=== PATIENT | male | born 1975 | race Caucasian/White ===

== ENCOUNTER 2016-10-28 13:00 | Emergency (ER) | payer OTHER ==
[~2016-10-28] VITALS: Ht 185.4 cm; Wt 106.8 kg
[~2016-10-28 13:00] MED LIST: ASPI-628 PO; ATOR80TA77 PO; HYDR25TA4 PO; METO-272 PO; ZYL100 PO
[2016-10-28 13:04] VITALS: BP 153/114; PULSE 90; RESP 18; O2SAT 98
[2016-10-28] MEDS ORDERED: 0.9% Sodium Chloride 1,000 ML IV ONE (13:21)
[2016-10-28] MEDS ORDERED: Ondansetron 2 mg/mL 2 mL Inj IVPUSH PRN (13:25)
--- NOTE | 2016-10-28 14:24 | DRSVH ---
PROCEDURE: CT KUB ([id number]) INDICATIONS: abd pain hematuria TECHNIQUE: Noncontrast 5 mm thick sections acquired from the diaphragms to the symphysis. 5 mm thick coronal an d sagittal reformats were then performed. For radiation dose reduction, the following was used: aut omated exposure control, adjustment of mA and/or kV according to patient size. COMPARISON: None. FINDINGS: Image quality: Excellent. Lung bases: Lung bases are clear. Heart size is normal. Urinary system: Both kidneys are normal in size. No kidney stones. No hydronephrosis or perinephri c fat stranding. Both ureters appear non-dilated throughout their expected courses. Bladder wall th ickness is normal; no calcified bladder stones. Other solid organs: Liver and spleen are normal in size. Diffuse fatty infiltration of the liver is noted. Gallbladder is within normal limits. Pancreas is normal in contours. No adrenal nodules. Peritoneum and bowel: Unenhanced bowel loops demonstrate normal wall thickness and caliber. Fat is n oted in the right colon wall in the terminal ileum. No free fluid or air. The appendix is not visuali zed, however, no inflammatory changes noted adjacent to the cecum. Nodes and vessels: No retroperitoneal or mesenteric adenopathy by size criteria. Aorta and inferior vena cava are normal in caliber. Abdominal wall: No ventral hernias. Pelvis: No free pelvic fluid. No inguinal hernias or adenopathy. Bones: No suspicious bony lesions. No vertebral body compression fractures. IMPRESSION: 1. No renal stone or hydronephrosis. 2. Hepatic steatosis. 3. No free fluid or air. 4. No dilated loops of bowel. 5. No inflammatory changes. 6. Intramural fat involving the right colon and terminal ileum. Finding is nonspecific and may repres ent a normal finding, however finding can also be associated with inflammatory bowel disease. Please correlate with clinical data. Dictated by: Rosibel Callejas MD, PhD on 10/28/2016 at 14:09 Approved by: Rosibel Callejas MD, PhD on 10/28/2016 at 14:23
--- NOTE | 2016-10-28 14:33 | ED.REPORT ---
HPI-Abd Pain M Under 40 Date of Service Oct 28, 2016 ED Provider: Artur Ochoa MD Patient is a 41-year-old male who reports to the ED complaining of RLQ abdominal pain radiating to the groin, onset 4 days ago. Pt c/o associated hematuria and vomiting. Patient denies nausea, fever, urinary urgency, frequency , dysuria, back pain, diarrhea, and loss of appetite. Patient has no history of stones. Nursing Notes Stated Complaint: STOMACH PAIN Chief Complaint: Male Abdominal Pain Nursing Notes Reviewed: Yes Allergies: Coded Allergies: No Known Allergies (Unverified , 10/28/16) Scheduled Allopurinol (Allopurinol) 100 Mg Tablet 300 MG PO DAILY Aspirin (Aspir 81) 81 Mg Tablet.dr 81 MG PO DAILY Atorvastatin Calcium (Atorvastatin Calcium) 80 Mg Tablet 80 MG PO DAILY Ciprofloxacin (Ciprofloxacin) 500 Mg Tablet 500 MG PO BID Hydrochlorothiazide (Hydrochlorothiazide) 25 Mg Tablet 25 MG PO DAILY Metoprolol Succinate ER (Metoprolol Succinate ER) 50 Mg Tab.er.24h 100 MG PO DAILY General Time Seen by MD: 13:20 Chief Complaint Abdominal pain (RLQ) Hx Obtained From: Patient Arrived By: Walk-in Sudden in Onset?: Yes Onset Occurred: 4 days ago Symptom Duration: Since onset Location: : RLQ Radiation: : Pelvis Severity: Current: Moderate Recent Healthcare: No recent doctor visit, No recent hospitalization Similar Sx Previous: No Past Medical History Past Medical History Hernia GERD Hypertension Past Surgical History Hernia repair x2 Mastiodectomy Appendectomy Knee surgery x2 Herniated disc repair Tonsillectomy Family History Mother: [place] at 61, DM and HTN Smoking History Never Smoker Social History Alcohol Use: "Social" Drug Use: Denies drug use Other Social History: Ambulatory Status Independent Review of Systems Constitutional: Denies: Fever GI: Reports: Abdominal pain, Vomiting, Denies: Diarrhea, Nausea Male: Reports Hematuria, Denies Dysuria, Denies Flank pain, Denies Urinary frequency, Denies Urinary urgency Musculoskeletal: Denies: Back pain Complete sys rev & neg: except as marked. Physical Exam Initial Vital Signs Vital Signs (First) Date Time Temp Pulse Resp B/P Pulse Ox O2 Delivery O2 Flow Rate FiO2 10/28/16 13:04 36.4 90 18 153/114 98 Room Air Initial VS: Reviewed Head / Eyes: Atraumatic, Normocephalic, PERRL ENT: Mucous membranes moist, Conjunctiva normal, No scleral icterus Neck: Supple, Non-tender, Full range of motion Skin: Warm, Dry, No cyanosis Neurologic: Alert, Oriented, Nonfocal Psychiatric: Mood/affect normal, Behavior normal, Normal thought content General/Constitutional: Awake, Alert Respiratory / Chest: Atraumatic, Breath sounds NL, Breath sounds = bilat, No respiratory distress, No rales, No rhonchi, No wheezing Cardiovascular: Heart rate NL, Regular rhythm, Heart sounds NL, No gallop Abdomen: Atraumatic, Soft, Non-tender, No guarding, No rebound Back: Atraumatic, Inspection NL, Full range of motion, Painless range of motion , Non-tender Interpretation & Diagnostics Lab Results Interpretation Test 10/28/16 14:20 10/28/16 15:11 Urine Color Dark yellow (YELLOW) Urine Appearance Clear (CLEAR,HAZY) Urine pH 5.5 (5.0-8.0) Urine Specific [place] 1.025 (1.003-1.035) Urine Protein Negativemg/dL (NEG,TRACE) Urine Glucose (UA) Negativemg/dL (NEGATIVE) Urine Ketones 40mg/dL (NEGATIVE) Urine Occult Blood Trace (NEGATIVE) Urine Nitrite Negative (NEGATIVE) Urine Bilirubin Negative (NEGATIVE) Urine Urobilinogen Normalmg/dL (NORMAL) Urine Leukocyte Esterase Negative (NEGATIVE) Urine RBC 0-2/hpf (0-2) Urine WBC 0-5/hpf (0-5) Urine Epithelial Cells Occasional/hpf (NONE-MOD) Urine Crystals None seen (NONE SEEN) Urine Bacteria None/hpf (NONE-FEW) Urine Hyaline Casts None/lpf (NONE) Urine Granular Casts None seen (NONE SEEN) Urine Waxy Casts None seen (NONE SEEN) Urine Red Blood Cell Casts None seen (NONE SEEN) Urine White Blood Cell Casts None seen (NONE SEEN) Urine Mucus Present (None Seen) Urine Trichomonas None seen (NONE SEEN) Urine Yeast None (NONE SEEN) Urinalysis Comment None Urine Culture Reflexed Not indicated CT Abd / Pelvis Interpretation IMPRESSION: 1. No renal stone or hydronephrosis. 2. Hepatic steatosis. 3. No free fluid or air. 4. No dilated loops of bowel. 5. No inflammatory changes. 6. Intramural fat involving the right colon and terminal ileum. Finding is nonspecific and may represent a normal finding, however finding can also be associated with inflammatory bowel disease. Please correlate with clinical data. Dictated by: Rosibel Callejas MD, PhD on 10/28/2016 at 14:09 Approved by: Rosibel Callejas MD, PhD on 10/28/2016 at 14:23 Study type: Abdominal CT no contrast Interpretation / Wet Read by: Interpret - Radiologist Re-Eval/Medical Decision Med Decision/Clinical Course 41-year-old male with right lower quadrant pain and hematuria times several days. Patient was seen in urgent care and had normal testicular ultrasound today. Urine there showed leukocytes with negative nitrites and positive blood. White blood cell count was 11,000. Other basic labs unremarkable. CT abdomen and pelvis here shows no evidence of kidney stone. There is right colon with intramural fat and terminal ileum. Patient will be treated for a UTI with return precautions. He is advised to follow-up with primary doctor next week to follow up on his hematuria. Return precautions given. Re-Evaluation/Progress : Time of Eval: 15:06 Patient Status: Condition improved Re-Evaluation/Progress Note: Pt rechecked. Informed pt of diagnosis of urinary tract infection and plan for treatment. Pt understands and agrees with plan. F/U and RTER warnings given. All questions addressed. Counseled Regarding: Diagnosis, Lab results, Need for follow-up, When/why to return to ED Patient Discharge & Departure Primary Impression: Hematuria Additional Impression: Urinary tract infection Urinary tract infection type: site unspecified Hematuria presence: with hematuria Qualified Code: N39.0 - Urinary tract infection, site not specified Disposition: Home Discharge Condition All VS Reviewed: Yes Condition: Stable Additional Instructions: Thank you for coming to the Emergency Room today. After review of your labs, your diagnosis is hematuria and urinary tract infection. Take antibiotics twice a day for seven days. Please follow up with your primary care physician next week. Return to the Emergency Room if you experience any new or worsening symptoms including vomiting, nausea, dysuria, back pain, diarrhea, and loss of appetite. We hope you feel better soon! Referrals: Balwinder Johnston MD (PCP) Scribe Attestation Portion of this note were transcribed by Tanvir Aguilar. I, Dr. Ochoa, personally performed the history, physical exam, and medical decision-making: I reviewed and confirmed the accuracy for the information in the transcribed note. Signed by: mk Ledezma, 10/28/16 [id number] copies to: Balwinder Johnston MD, Ben M MD Oct 28, 2016 14:24 TANVIR AGUILAR Oct 28, 2016 14:33
[2016-10-28 15:01] LABS: APPEARANCE,URINE CLEAR (CLEAR,HAZY); COLOR,URINE DARK YELLOW (YELLOW); OCCULT BLOOD,URINE TRACE (NEGATIVE); PH,URINE 5.5 (5.0-8.0)
[2016-10-28 15:04] LABS: UROBILINOGEN,URINE NORMAL (NORMAL)
[2016-10-28] MEDS ORDERED: CIPR-198 PO (15:13)
[2016-10-28 15:57] VITALS: BP 162/68; PULSE 79; RESP 19; O2SAT 99
== END 2016-10-28 15:58 | disposition home or self-care (01) ==
LOC: SED 13:00
DX: N39.0 Urinary tract infection, site not specified (principal); R31.9 Hematuria, unspecified; I10 Essential (primary) hypertension; K21.9 Gastro-esophageal reflux disease without esophagitis; Z79.82 Long term (current) use of aspirin
CPT/HCPCS: 74176; 81000; 96361; 96374; 96375; 99285; J2405; J7030

== ENCOUNTER 2016-11-01 17:55 | Emergency (ER) | payer OTHER ==
[~2016-11-01] VITALS: Ht 185.4 cm; Wt 106.8 kg
[~2016-11-01 17:55] MED LIST changes: +CIPR-198 PO
[2016-11-01 18:10] VITALS: BP 200/120; PULSE 61; RESP 15; O2SAT 98
--- NOTE | 2016-11-01 19:19 | ED.REPORT ---
HPI-Extremity Problem Lower Date of Service Nov 01, 2016 ED Provider: Dr. Tong Michaud D.O. A 41 year old male with a history of hypertension, hernia, GERD, and gout presents to the ED from his PCP's office with right foot pain onset two days upon awakening at 0200. The pain is exacerbated with range of motion. The patient also reports that his foot appeared purple today, but this has since resolved. He denies fever or injury/trauma to the area. He has had similar symptoms in the past, although less severe, secondary to gout. The patient was in the ED four days ago with a UTI and kidney stones, and was subsequently placed on Cipro. Nursing Notes Stated Complaint: RIGHT FOOT AND LEG PAIN, FOOT PURPLE Chief Complaint: Extremity Trauma Nursing Notes Reviewed: Yes Allergies: Coded Allergies: No Known Allergies (Unverified , 11/01/16) Scheduled Allopurinol (Allopurinol) 100 Mg Tablet 300 MG PO DAILY Aspirin (Aspir 81) 81 Mg Tablet.dr 81 MG PO DAILY Atorvastatin Calcium (Atorvastatin Calcium) 80 Mg Tablet 80 MG PO DAILY Ciprofloxacin (Ciprofloxacin) 500 Mg Tablet 500 MG PO BID Hydrochlorothiazide (Hydrochlorothiazide) 25 Mg Tablet 25 MG PO DAILY Metoprolol Succinate ER (Metoprolol Succinate ER) 50 Mg Tab.er.24h 100 MG PO DAILY General Time Seen by MD: 19:19 Chief Complaint Other (Right Foot Pain) Hx Obtained From: Patient Arrived By: Walk-in Onset Occurred: 2 days ago Symptom Duration: Since onset Caused by: Mechanism unknown Location: : Foot right Quality: Painful Severity: Current: Moderate Severity: Maximum: Moderate Associated with: Denies: Fever Exacerbated by: Range of motion Pertinent Negative: Relieved by nothing Immunizations: Tetanus not up to date Recent Healthcare: Recent doctor visit Similar Sx Previous: Yes Past Medical History Past Medical History Hernia GERD Hypertension Gout Past Surgical History Hernia repair x2 Mastiodectomy Appendectomy Knee surgery x2 Herniated disc repair Tonsillectomy Left heart catheterization Family History Mother: [place] at 61, DM and HTN Smoking History Never Smoker Social History Alcohol Use: "Social" Drug Use: Denies drug use Other Social History: Ambulatory Status Independent Review of Systems Review of Systems Note: + Right foot color change to purple Constitutional: Denies: Fever Musculoskeletal: Reports: Extremity pain (Right Foot) Complete sys rev & neg: except as marked. Respiratory: Denies: Non-productive cough, Shortness of breath GI: Denies: Vomiting Physical Exam Physical Exam Notes: Initial Vital Signs Vital Signs (First) Date Time Temp Pulse Resp B/P Pulse Ox O2 Delivery O2 Flow Rate FiO2 11/01/16 18:10 36.2 61 15 200/120 98 Room Air Initial VS: Reviewed Head / Eyes: Atraumatic, Normocephalic ENT: Conjunctiva normal, No scleral icterus Neck: Supple, Full range of motion Respiratory: Breath sounds normal, Clear to auscultation, No respiratory distress Cardiovascular: Regular rate & rhythm, Heart sounds normal Skin: Warm, Dry Neurologic: Alert, Oriented, Nonfocal Psychiatric: Mood/affect normal, Behavior normal, Normal thought content Ankle / Foot: Neurologic intact, Vascular intact (Bounding DP and PT pulses) Extreme pain with range of motion of right foot Petechia on dorsal aspect of right foot Lymphangitic streaking, right foot General/Constitutional: Awake, Alert Interpretation & Diagnostics RIGHT LEG VEINOUS DUPLEX US: IMPRESSION: No DVT in the right lower extremity. Dictated by: Jasmin Spears M.D. on 11/01/2016 at 21:41 Lab Results Interpretation Result Diagram: 11/01/16201911/01/16 2020 Test 11/01/16 20:20 White Blood Count 7.9th/mm3 (3.8-10.1) Red Blood Count 4.93mil/mm3 (4.40-5.80) Hemoglobin 16.3g/dL (13.8-17.2) Hematocrit 46.4% (41.0-50.0) Mean Corpuscular Volume 94.1fL (81-100) Mean Corpuscular Hemoglobin 33.1pg (27.0-35.0) Mean Corpuscular Hemoglobin Concent 35.1% (32.0-37.0) Red Cell Distribution Width 11.7% (12.3-15.4) Platelet Count 250bil/L (150-400) Neutrophils (%) (Auto) 71.3% (40-74) Lymphocytes (%) (Auto) 18.0% (14-46) Monocytes (%) (Auto) 8.6% (4-12) Eosinophils (%) (Auto) 1.4% (0-5) Basophils (%) (Auto) 0.3% (0-3) Sodium Level 138mEq/L (134-144) Potassium Level 4.0mEq/L (3.5-5.2) Chloride Level 99mEq/L (97-108) Carbon Dioxide Level 23mmol/L (18-29) Blood Urea Nitrogen 9mg/dL (6-20) Creatinine 0.93mg/dL (0.76-1.27) Estimat Glomerular Filtration Rate 96mL/min (>59) Glucose Level 105mg/dL (60-99) Calcium Level 10.2mg/dL (8.5-10.1) Total Bilirubin 0.9mg/dL (0.0-1.2) Aspartate Amino Transf (AST/SGOT) 83U/L (0-50) Alanine Aminotransferase (ALT/SGPT) 98U/L (0-44) Alkaline Phosphatase 91U/L (25-150) Total Protein 7.8g/dL (6.4-8.4) Albumin 4.5g/dL (3.4-5.0) Hold Hodge Top Tube Received (Received) X-Ray Interpretation Xray Interpretation: IMPRESSION: No fracture or dislocation. Dictated by: Jasmin Spears M.D. on 11/01/2016 at 20:21 Study Performed: 3 View X-Ray Ordered: Foot right Interpretation / Wet Read by: Interpret - Radiologist Re-Eval/Medical Decision Med Decision/Clinical Course DVT has been ruled out. Normal ultrasound. Acute arterial insufficiency is ruled out. No signs of arterial insufficiency and he has bounding pulses. X- ray is normal. I think he either has a gout flareup or cellulitis. We will treat for both. Recommended close outpatient follow-up. His blood pressure came down nicely with treatment. Source of Hx: Old records Re-Evaluation/Progress : Time of Eval: 22:22 Patient Status: Condition improved, Pain improved Re-Evaluation/Progress Note: Patient feels much improved. Discussed with patient x-ray, US, and lab results, diagnosis, and plan for discharge. Follow-up and return to the ER instructions given. Patient agrees with plan for care and all questions were addressed. Counseled Regarding: Diagnosis, Lab results, Need for follow-up, When/why to return to ED Discharge & Departure Shift Change Sign-Out Response to Therapy: Improved Impression: Primary Impression: Gout Gout site: toe Gout etiology: unspecified cause Laterality: right Chronicity: acute Qualified Code: M10.9 - Gout, unspecified Additional Impressions: Cellulitis Site of cellulitis: extremity Site of cellulitis of extremity: toe Laterality: right Qualified Code: L03.031 - Cellulitis of right toe Petechiae Disposition: Home Discharge Condition All VS Reviewed: Yes Condition: Stable Patient Instructions: Acute Gouty Arthritis (ED), Cellulitis (ED) Additional Instructions: Your laboratory work, ultrasound, and x-ray were all reassuring. I suspect that you will either have an acute gouty arthritis flare-up or possibly a skin infection. We will treat for both. Regarding the gout I want you to take 1-2 Percocet every 6 hours as needed for severe pain. Take prednisone daily for 5 days. Set up a follow-up to primary care and discuss colchicine and other gout medications. Regarding the infection take both Bactrim and Augmentin twice daily for 5 days. If the redness is worse tomorrow or if you have any other increasing symptoms come back here for recheck. Do not drive or drink alcohol or consume acetaminophen while taking the Percocet. Referrals: Balwinder Johnston MD (PCP) Scribe Attestation Portions of this note were transcribed by Lorrie Lyle. I, Dr. Michaud, personally performed the history, physical exam, and medical decision-making; I reviewed and confirmed the accuracy of the information in the transcribed note. Signed by: Anahi Nelson, 11/01/2016, 23:12 copies to: Balwinder Johnston MD, Todd P DO Nov 01, 2016 19:19 LORRIE LYLE Nov 01, 2016 19:46
[2016-11-01] MEDS ORDERED: MethylprednisoLONE Sodium Succinate 62.5 mg/mL 2 mL Inj IVPUSH ONE (19:50)
--- NOTE | 2016-11-01 20:24 | DRSVH ---
PROCEDURE: X-RAY RIGHT FOOT COMPLETE, MINIMUM THREE VIEWS ([id number]) INDICATIONS: severe dorsal foot pain with petechia TECHNIQUE: 3 views of the foot were acquired. COMPARISON: [facility], , FOOT COMP MIN 3VW (RT), 12/11/2013, 19:22. FINDINGS: Bones: No fractures or dislocations. No suspicious bony lesions. Soft tissues: No tibiotalar joint effusion. Achilles tendon appears normal. IMPRESSION: No fracture or dislocation. Dictated by: Jasmin Spears M.D. on 11/01/2016 at 20:21 Approved by: Jasmin Spears M.D. on 11/01/2016 at 20:22
[2016-11-01 20:31] LABS: BASOPHILS % (AUTO) 0.3 % (0-3); EOSINOPHILS % (AUTO) 1.4 % (0-5); MONOCYTES % (AUTO) 8.6 % (4-12); Mean Corpuscular Hemoglobin 33.1 pg (27.0-35.0); Mean Corpuscular Volume 94.1 fL (81-100); NEUTROPHILS % (AUTO) 71.3 % (40-74); Platelet Count 250 bil/L (150-400)
[2016-11-01] MEDS: HYDROmorphone 0.5 mg/0.5 mL iSecure Syringe IVPUSH PRN ×2 (20:46→21:23)
[2016-11-01] MEDS: Ondansetron 2 mg/mL 2 mL Inj IVPUSH PRN ×2 (20:47→21:23)
[2016-11-01 21:23] VITALS: BP 147/104; PULSE 104; RESP 20; O2SAT 100
--- NOTE | 2016-11-01 21:43 | DRSVH ---
PROCEDURE: US VEINOUS LEG DUPLEX UNILATERAL, RIGHT INDICATIONS: right leg swelling and ecchymosis TECHNIQUE: Real-time imaging, as well as color and pulse Doppler interrogation, were performed of the lower extr emity deep veins from the inguinal ligament to the popliteal fossa. COMPARISON: None. FINDINGS: The deep veins are normally compressible, and free of intraluminal thrombus. Color and pu lse Doppler demonstrate normal phasic intraluminal flow. There is normal augmentation response to di stal compression maneuver. IMPRESSION: No DVT in the right lower extremity. Dictated by: Jasmin Spears M.D. on 11/01/2016 at 21:41 Approved by: Jasmin Spears M.D. on 11/01/2016 at 21:41
[2016-11-01] MEDS ORDERED: Amoxicillin-Clav 875-125 mg Tablet PO ONE (22:20)
[2016-11-01] MEDS ORDERED: Trimethoprim-Sulfa 160 mg-800 mg Tablet PO ONE (22:20)
[2016-11-01] MEDS ORDERED: _oxyCODONE/APAP 5-325 mg Tablet PO PRN (22:20)
== END 2016-11-01 22:20 | disposition home or self-care (01) ==
LOC: SED 17:55
DX: M10.9 Gout, unspecified (principal); L03.031 Cellulitis of right toe; R23.3 Spontaneous ecchymoses; I10 Essential (primary) hypertension; K21.9 Gastro-esophageal reflux disease without esophagitis; Z95.5 Presence of coronary angioplasty implant and graft; Z79.82 Long term (current) use of aspirin
CPT/HCPCS: 36415; 73630; 80053; 85025; 93971; 96374; 96375; 96376; 99285; J1170; J2405; J2930